=== PATIENT | female | born 1960 | race Caucasian/White ===

== ENCOUNTER 2016-10-05 22:17 | Emergency (ER) | payer MEDICAID ==
[~2016-10-05] VITALS: Ht 170.2 cm; Wt 104.6 kg
[~2016-10-05 22:17] MED LIST: ALBU90AE INH; ALPR0.2550 PO; AMLO5TAB2 PO; AZIT250T5 PO; AZIT250T81 PO; BENZ200C25 PO; CIPR500S2 PO; CPR500T PO; DOXY100C2 PO; ESCI20TA45 PO; FURO40TA4 PO; IBUP800T26 PO; LEVO125T6 PO; LVT.05T PO; LVT.1T PO; OMEP20CA12 PO; PHEN100T26 PO; POTA20TA15 PO; POTA20TA8 PO; TRAM50TA2 PO
--- NOTE | 2016-10-05 23:28 | ED Upper Extremity ---
General Chief Complaint: Upper Extremity Stated Complaint: RIGHT WRIST INJ Nursing Triage Note: PT REPORTS FELL WHILE TAKING HER DOG OUT TO USE THE RESTROOM. PT REPORTS R WRIST, ELBOW, AND SHOULDER PAIN. PT DENIES ANY OTHER INJURY. Nursing Sepsis Screen: No Definite Risk Source: patient Exam Limitations: no limitations History of Present Illness Time seen by provider: 23:28 Allergies and Home Medications Allergies Coded Allergies: Penicillins (Verified Allergy, Unknown, 09/04/06) morphine (Verified Allergy, Unknown, 09/04/06) Home Medications Albuterol Sulfate 90 Mcg Aer.pow.ba, 2 PUFF INH Q6H PRN for SHORTNESS OF BREATH, (Reported) Amlodipine Besylate 5 Mg Tablet, 5 MG PO DAILY, (Reported) #30 FILLED 11-19-15 Azithromycin 250 Mg Tablet, PO UD for 5 Days, (Reported) 5 DAY SUPPLY FILLED 12-29-15 Doxycycline Hyclate 100 Mg Capsule, 100 MG PO BID for 10 Days, (Reported) 10 DAY SUPPLY FILLED 12-29-15 Escitalopram Oxalate 20 Mg Tablet, 20 MG PO DAILY, (Reported) Furosemide 40 Mg Tablet, 40 MG PO DAILY, (Reported) #90 FILLED 09-10-15 Levothyroxine Sodium 125 Mcg Tablet, 125 MCG PO DAILY, (Reported) #90 FILLED 09-10-15 Potassium Chloride 20 Meq Tab.er.prt, 20 MEQ PO DAILY, (Reported) FILLED #30 09-10-15 Past Vyiltjy-Axycmu-Vnttzj Hx Patient Social History Alcohol Use: Denies Use Recreational Drug Use: Yes (PAST HX OF) Smoking Status: Current Everyday Smoker Type Used: Cigarettes Recent Foreign Travel: No Contact w/Someone Who Travel: No Recent Infectious Disease Expo: No Recent Hopitalizations: Yes (10 YRS AGO) Physical Abuse: No Sexual Abuse: No Mistreated: No Fear: No Immunizations Up To Date Tetanus Booster (TDap): Unknown Date of Pneumonia Vaccine: Feb 14, 2012 Date of Influenza Vaccine: Dec 14, 2012 Seasonal Allergies Seasonal Allergies: No Surgeries History of Surgeries: Yes (R ARM, LIGAMENT TRANSFER AND NASAL RECONSTR) Surgeries: Breast, Nose, Orthopedic, Tonsillectomy, Tubal Ligation Respiratory History of Respiratory Disorde: No Cardiovascular History of Cardiac Disorders: Yes Cardiac Disorders: Hypertension Neurological History of Neurological Disord: Yes Neurological Disorders: Headaches /Migraines Reproductive System Hx Reproductive Disorders: No Gastrointestinal History of Gastrointestinal Di: Yes Gastrointestinal Disorders: Gastroesophageal Reflux Musculoskeletal History of Musculoskeletal Dis: Yes (RIGHT ARM COMPOUND FX) Musculoskeletal Disorders: Fractures Endocrine History of Endocrine Disorders: Yes Endocrine Disorders: Hypothyroidsim Cancer History of Cancer: No Psychosocial History of Psychiatric Problem: Yes Behavioral Health Disorders: Anxiety, Depression Suicide Risk Score: 0 Integumentary History of Skin or Integumenta: No Blood Transfusions History of Blood Disorders: No Family Medical History Family Medial History: Alcoholism G8 BROTHER Cardiovascular disease 19 MOTHER Diabetes mellitus G8 SISTER FH: cancer 19 FATHER Hypertension G8 BROTHER Physical Exam Vital Signs Vital Sign - Last 12Hours 10/05/16 22:40 Temp 96.8 Pulse 100 Resp 18 B/P (MAP) 170/127 Pulse Ox 99 Capillary Refill : Less Than 3 Seconds Progress/Results/Core Measures Results/Orders My Orders Orders - ALEXA JOHNSON Forearm, Right, 2 Views (10/05/16 22:39) Humerus, Right, 2 Views (10/05/16 22:39) Hand, Right, 3 Views (10/05/16 22:39) Ketorolac Injection (Toradol Injection) (10/05/16 23:37) Vital Signs/I&O Vital Sign - Last 12Hours 10/05/16 22:40 Temp 96.8 Pulse 100 Resp 18 B/P (MAP) 170/127 Pulse Ox 99 Blood Pressure Mean: 141 Departure Impression Impression: Primary Impression: Sprain of upper extremity Disposition: 01 HOME, SELF-CARE Condition: Improved Departure-Patient Inst. Decision time for Depature: 23:39 Referrals: DORIS SOTO DO (PCP/Family) Primary Care Physician Patient Instructions: How to Use a Shoulder Sling, Wrist Sprain (DC), Muscle Strain (DC) Add. Discharge Instructions: All discharge instructions reviewed with patient and/or family. Voiced understanding. Tylenol extra strength [id number] as directed for pain. Ibuprofen 800 mg by mouth every 8 hours as needed for pain. Elevate the right arm on pillows. Ice pack for 20 minute intervals as needed for pain. Arm sling as instructed. Wrist brace as instructed. Follow-up with your primary care physician for recheck as an outpatient. Return to the emergency department for worsened symptoms or any other concerns. ALEXA JOHNSON Oct 05, 2016 23:28
[2016-10-05] MEDS ORDERED: KETOROLAC 60 MG/2 ML VIAL IM STA (23:37)
[2016-10-05 23:47] VITALS: BP 0/0
--- NOTE | 2016-10-06 07:05 | Diagnostic Imaging Report ---
INDICATION: Pain post fall TECHNIQUE: 2 views of the right humerus CORRELATION STUDY: None FINDINGS: The humerus has an unremarkable appearance. The visualized portions of the shoulder and elbow are unremarkable. Soft tissues are unremarkable. IMPRESSION: 1. Negative for acute bony abnormality of the humerus. Dictated by: Dictated on workstation # [id number]
--- NOTE | 2016-10-06 07:13 | Diagnostic Imaging Report ---
HAND, RIGHT, 3 VIEWS COMPARISON: None available. INDICATION: Right hand pain after fall. Patient has had multiple surgeries in the right wrist. TECHNIQUE: PA, oblique and lateral views of the hand. FINDINGS: No fracture or traumatic malalignment. No radiopaque foreign body. Moderate degenerative changes at the first CMC articulation. Partially imaged distal ulnar resection. IMPRESSION: 1. No acute fracture or malalignment. 2. Partial imaged surgical changes of distal ulnar resection. Dictated by: Dictated on workstation # [id number]
--- NOTE | 2016-10-06 07:20 | Diagnostic Imaging Report ---
INDICATION: Pain post fall. History of previous multiple surgeries, right wrist. TECHNIQUE: 2 views of the right forearm. CORRELATION STUDY: 10/04/2012. FINDINGS: There is a chronic deformity about the distal radius and ulna. 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 There is abnormal lateral bowing of the distal radius with narrowing of the radiocarpal row. No findings to suggest acute bony abnormality about the radius and/or ulna. Visualized portions of the elbow appearing relatively unremarkable. Soft tissues may reflect calcification. Foreign bodies would be considered less likely. IMPRESSION: Negative for acute bony abnormality of the forearm. Likely chronic traumatic or surgical changes about the distal forearm. Dictated by: Dictated on workstation # [id number]
== END 2016-10-05 23:47 | disposition home or self-care (01) ==
LOC: ER 22:17
DX: S63.501A Unspecified sprain of right wrist, initial encounter (principal); F41.9 Anxiety disorder, unspecified; F32.9 Major depressive disorder, single episode, unspecified; E03.9 Hypothyroidism, unspecified; K21.9 Gastro-esophageal reflux disease without esophagitis; G43.909 Migraine, unspecified, not intractable, without status migrainosus; F17.210 Nicotine dependence, cigarettes, uncomplicated; Z98.51 Tubal ligation status; Z87.81 Personal history of (healed) traumatic fracture; Z90.89 Acquired absence of other organs; W19.XXXA Unspecified fall, initial encounter
CPT/HCPCS: 73060; 73090; 73130; 96372; 99284

== ENCOUNTER 2018-06-10 09:45 | Emergency (ER) | payer MEDICAID ==
[~2018-06-10] VITALS: Ht 165.1 cm; Wt 108.9 kg
[~2018-06-10 09:45] MED LIST changes: +AMLO5TAB9 PO; +AZIT250T12 PO; -AZIT250T5 PO
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
[2018-06-10] MEDS ORDERED: RT-ALBUTEROL/IPRATROPIUM 3 ML (DUONEB) VIAL INH ONE (10:15)
--- NOTE | 2018-06-10 10:16 | ED Cough/URI ---
General Chief Complaint: Cough/Cold/Flu Symptoms Stated Complaint: PNEUMONIA SYMPTOMS Nursing Triage Note: PT AMB TO RM 9 WITH COMPLAINT OF COUGH, CONGESTION FOR 1 WEEK. STATES SHE HAS BEEN TAKING ROBUTUSSIN. Sepsis Screen: No Definite Risk Source: patient Exam Limitations: no limitations History of Present Illness Date Seen by Provider: Jun 10, 2018 Time Seen by Provider: 10:07 Initial Comments Patient presents to ER by private conveyance with chief complaint of 10 days of cough, sinus drainage, fever 102.9 last night. She does not have a history of COPD to take breathing treatments. She does smoke about half pack cigarettes per day. No nausea sweats, chills, constipation or diarrhea. Patient does not take her blood pressure medicine anymore because she has not followed up with Dr. Soto her greater than 6 months. She does not remember the name of the medicine was. Allergies and Home Medications Allergies Coded Allergies: Penicillins (Verified Allergy, Unknown, 09/04/06) morphine (Verified Allergy, Unknown, 09/04/06) Home Medications Albuterol Sulfate 90 Mcg Aer.pow.ba, 2 PUFF INH Q6H PRN for SHORTNESS OF BREATH, (Reported) Amlodipine Besylate 5 Mg Tablet, 5 MG PO DAILY, (Reported) #30 FILLED 11-19-15 Azithromycin 250 Mg Tablet, PO UD, (Reported) 5 DAY SUPPLY FILLED 12-29-15 Doxycycline Hyclate 100 Mg Capsule, 100 MG PO BID, (Reported) 10 DAY SUPPLY FILLED 12-29-15 Escitalopram Oxalate 20 Mg Tablet, 20 MG PO DAILY, (Reported) Furosemide 40 Mg Tablet, 40 MG PO DAILY, (Reported) #90 FILLED 09-10-15 Levothyroxine Sodium 125 Mcg Tablet, 125 MCG PO DAILY, (Reported) #90 FILLED 09-10-15 Potassium Chloride 20 Meq Tab.er.prt, 20 MEQ PO DAILY, (Reported) FILLED #30 09-10-15 Patient Home Medication List Home Medication List Reviewed: Yes Review of Systems Review of Systems Constitutional: chills, fever, malaise EENTM: No ear discharge, No hearing loss, No ear pain Respiratory: cough, phlegm, short of breath, wheezing Cardiovascular: No chest pain, No edema Gastrointestinal: No abdominal pain, No nausea, No vomiting Genitourinary: No discharge, No dysuria Past Sjwfxie-Ciyomb-Xqhbbl Hx Patient Social History Alcohol Use: Denies Use Recreational Drug Use: Yes (PAST HX OF) Type Used: Cigarettes Recent Foreign Travel: No Contact w/Someone Who Travel: No Recent Infectious Disease Expo: No Recent Hopitalizations: No Immunizations Up To Date Tetanus Booster (TDap): Unknown Date of Pneumonia Vaccine: Feb 14, 2012 Date of Influenza Vaccine: Dec 14, 2012 Seasonal Allergies Seasonal Allergies: No Past Medical History Surgeries: Yes (R ARM, LIGAMENT TRANSFER AND NASAL RECONSTR) Breast, Nose, Orthopedic, Tonsillectomy, Tubal Ligation Respiratory: No Cardiac: Yes Hypertension Neurological: Yes Headaches /Migraines Reproductive Disorders: No Gastrointestinal: Yes Gastroesophageal Reflux Musculoskeletal: Yes (RIGHT ARM COMPOUND FX) Fractures Endocrine: Yes Hypothyroidsim Cancer: No Psychosocial: Yes Anxiety, Depression Integumentary: No Blood Disorders: No Family Medical History Alcoholism G8 BROTHER Cardiovascular disease 19 MOTHER Diabetes mellitus G8 SISTER FH: cancer 19 FATHER Hypertension G8 BROTHER No Pertinent Family Hx Physical Exam Vital Signs - First Documented 06/10/18 10:02 Temp 98.2 Pulse 77 Resp 20 B/P (MAP) 199/110 (139) Pulse Ox 99 O2 Delivery Room Air Capillary Refill : Less Than 3 Seconds Height: 5'5.00" Weight: 240lbs. 8.0oz. 108.849026vv; 36.02 BMI Method:Stated General Appearance: WD/WN, no apparent distress Eyes: Bilateral Eye Normal Inspection, Bilateral Eye PERRL, Bilateral Eye EOMI HEENT: PERRL/EOMI, normal ENT inspection, TMs normal, pharynx normal Neck: non-tender, full range of motion, normal inspection Respiratory: chest non-tender, no respiratory distress, no accessory muscle use , decreased breath sounds, wheezing (a few) Cardiovascular: normal peripheral pulses, regular rate, rhythm, no edema Neurologic/Psychiatric: alert, oriented x 3 Skin: normal color, warm/dry Progress/Results/Core Measures Suspected Sepsis Recent Fever Within 48 Hours: No Infection Criteria Present: None New/Unexplained Altered Menta: No Sepsis Screen: No Definite Risk SIRS Temperature:98.2 Pulse: 77 Respiratory Rate: 20 Laboratory Tests 06/10/18 10:35: White Blood Count 10.4 Blood Pressure 199 /110 Mean: 139 Laboratory Tests 06/10/18 10:35: Creatinine 0.77, Platelet Count 343, Total Bilirubin 0.6 Results/Orders Lab Results Laboratory Tests Test 06/10/18 10:35 Range/Units White Blood Count 10.4 4.3-11.0 10^3/uL Red Blood Count 5.38 4.35-5.85 10^6/uL Hemoglobin 11.5 11.5-16.0 G/DL Hematocrit 38 35-52 % Mean Corpuscular Volume 71 L 80-99 FL Mean Corpuscular Hemoglobin 21 L 25-34 PG Mean Corpuscular Hemoglobin Concent 30 L 32-36 G/DL Red Cell Distribution Width 21.6 H 10.0-14.5 % Platelet Count 343 130-400 10^3/uL Mean Platelet Volume 10.9 H 7.4-10.4 FL Neutrophils (%) (Auto) 68 42-75 % Lymphocytes (%) (Auto) 21 12-44 % Monocytes (%) (Auto) 7 0-12 % Eosinophils (%) (Auto) 2 0-10 % Basophils (%) (Auto) 1 0-10 % Neutrophils # (Auto) 7.1 1.8-7.8 X 10^3 Lymphocytes # (Auto) 2.2 1.0-4.0 X 10^3 Monocytes # (Auto) 0.8 0.0-1.0 X 10^3 Eosinophils # (Auto) 0.3 0.0-0.3 10^3/uL Basophils # (Auto) 0.1 0.0-0.1 10^3/uL Sodium Level 140 135-145 MMOL/L Potassium Level 4.1 3.6-5.0 MMOL/L Chloride Level 106 98-107 MMOL/L Carbon Dioxide Level 20 L 21-32 MMOL/L Anion Gap 14 5-14 MMOL/L Blood Urea Nitrogen 10 7-18 MG/DL Creatinine 0.77 0.60-1.30 MG/DL Estimat Glomerular Filtration Rate > 60 BUN/Creatinine Ratio 13 Glucose Level 104 70-105 MG/DL Calcium Level 9.4 8.5-10.1 MG/DL Corrected Calcium 9.4 8.5-10.1 MG/DL Total Bilirubin 0.6 0.1-1.0 MG/DL Aspartate Amino Transf (AST/SGOT) 56 H 5-34 U/L Alanine Aminotransferase (ALT/SGPT) 47 0-55 U/L Alkaline Phosphatase 110 40-136 U/L C-Reactive Protein High Sensitivity 0.67 H 0.00-0.50 MG/DL Total Protein 8.8 H 6.4-8.2 GM/DL Albumin 4.0 3.2-4.5 GM/DL My Orders Orders - NAYA NICKERSON Cbc With Automated Diff (06/10/18 10:15) Comprehensive Metabolic Panel (06/10/18 10:15) Hs C Reactive Protein (06/10/18 10:15) Chest Pa/Lat (2 View) (06/10/18 10:15) Albuterol/Ipra Inhalation Soln (Duoneb I (06/10/18 10:15) Svn Small Volume Nebulizer (06/10/18 10:15) Medications Given in ED Current Medications Medications Dose Ordered Sig/Brigid Route Start Time Stop Time Status Last Admin Dose Admin Albuterol/ Ipratropium 3 ml ONCE ONCE INH 06/10/18 10:15 06/10/18 10:16 DC 06/10/18 10:50 3 ML Vital Signs/I&O 06/10/18 06/10/18 10:02 10:50 Temp 98.2 Pulse 77 Resp 20 B/P (MAP) 199/110 (139) Pulse Ox 99 95 O2 Delivery Room Air Room Air Capillary Refill : Less Than 3 Seconds Blood Pressure Mean: 139 Progress Note : Time: 11:21 Progress Note Breathing treatment, chest x-ray and lab. Bronchitis versus pneumonia versus COPD exacerbation. Diagnostic Imaging Diagonstic Imaging: Xray Plain Films/CT/US/NM/MRI: chest (2 view) Comments [facility], [place] NAME: AMAIRANI ROY [facility] REC#: [id number] PT STATUS: REG ER : 1960 PHYSICIAN: NAYA NICKERSON MD ADMIT DATE: 06/10/18/ER Draft Date of Exam:06/10/18 CHEST PA/LAT (2 VIEW) INDICATION: Chest pain, congestion COMPARISON: 11/10/2014 FINDINGS: There is flattening of the diaphragms and chronic air trapping. No focal infiltrate, failure pattern, effusion or pneumothorax. IMPRESSION: Clear hyperexpanded lungs, otherwise negative. Dictated on workstation # [id number] Dict: 06/10/18 1051 Trans: 06/10/[address] [facility] [id number] Interpreted by: NAYA STARKS Electronically signed by: Reviewed: Reviewed by Me Departure Impression Primary Impression: COPD with acute bronchitis Additional Impression: Hypertension Disposition: 01 HOME, SELF-CARE Condition: Stable Departure-Patient Inst. Decision time for Depature: 11:22 Referrals: DORIS SOTO DO (PCP/Family) Primary Care Physician Patient Instructions: Acute Bronchitis, Adult (DC), Exacerbation of COPD (DC) Add. 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 Use it with your albuterol inhaler every 6 hours [id number] for the next week. You can use the albuterol 2 puffs every 4 hours as needed for breakthrough wheezing or coughing. Use the Tessalon Perles 1 capsule every 6 hours as needed for cough. 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 If you're not seeing some improvement by middle of next week follow-up with your primary care doctor for reexamination. Please return to the nearest ER for having difficulty breathing. All discharge instructions reviewed with patient and/or family. Voiced understanding. Scripts Inhaler, Assist Devices (E-Z Spacer) 1 Each Spacer EACH MC for Cough, #1 0 Refills Prov: NAYA NICKERSON 06/10/18 Prednisone (Prednisone) 20 Mg Tab 40 MG PO DAILY for 5 Days, #10 TAB 0 Refills Prov: NAYA NICKERSON 06/10/18 Benzonatate (TESSALON PERLES) 100 Mg Capsule 100 MG PO Q6H PRN for COUGH, #20 CAP 0 Refills Prov: NAYA NICKERSON 06/10/18 Albuterol Sulfate (PROAIR HFA) 1 Puff Puff 2 PUFF IH Q6H for 14 Days, #1 EA 0 Refills 1 PUFF = 90 MCG Prov: NAYA NICKERSON 06/10/18 NAYA NICKERSON Jun 10, 2018 10:16
[2018-06-10 10:44] LABS: BASOPHILS # (AUTO) 0.1 10^3/uL (0.0-0.1); BASOPHILS % (AUTO) 1 % (0-10); EOSINOPHILS # (AUTO) 0.3 10^3/uL (0.0-0.3); EOSINOPHILS % (AUTO) 2 % (0-10); HEMATOCRIT 38 % (35-52); HEMOGLOBIN 11.5 G/DL (11.5-16.0); LYMPHOCYTES # (AUTO) 2.2 X 10^3 (1.0-4.0); LYMPHOCYTES % (AUTO) 21 % (12-44); MEAN CORPUSCULAR HEMOGLOBIN 21 PG (25-34); MEAN CORPUSCULAR HGB CONC 30 G/DL (32-36); MEAN CORPUSCULAR VOLUME 71 FL (80-99); MEAN PLATELET VOLUME 10.9 FL (7.4-10.4); MONOCYTES # (AUTO) 0.8 X 10^3 (0.0-1.0); MONOCYTES % (AUTO) 7 % (0-12); NEUTROPHILS # (AUTO) 7.1 X 10^3 (1.8-7.8); NEUTROPHILS % (AUTO) 68 % (42-75); PLATELET COUNT 343 10^3/uL (130-400); RED CELL DISTRIBUTION WIDTH 21.6 % (10.0-14.5); WHITE BLOOD COUNT 10.4 10^3/uL (4.3-11.0)
--- NOTE | 2018-06-10 10:55 | Diagnostic Imaging Report ---
INDICATION: Chest pain, congestion COMPARISON: 11/10/2014 FINDINGS: There is flattening of the diaphragms and chronic air trapping. No focal infiltrate, failure pattern, effusion or pneumothorax. IMPRESSION: Clear hyperexpanded lungs, otherwise negative. Dictated by: Dictated on workstation # [id number]
[2018-06-10 11:00] LABS: ALANINE AMINOTRANSFERASE 47 U/L (0-55); ALKALINE PHOSPHATASE 110 U/L (40-136); BILIRUBIN,TOTAL 0.6 MG/DL (0.1-1.0); BUN/CREATININE RATIO 13; CALCIUM 9.4 MG/DL (8.5-10.1); CARBON DIOXIDE 20 MMOL/L (21-32); CHLORIDE 106 MMOL/L (98-107); CREATININE SERUM 0.77 MG/DL (0.60-1.30); GFR ESTIMATED > 60; GLUCOSE 104 MG/DL (70-105); POTASSIUM 4.1 MMOL/L (3.6-5.0); SODIUM 140 MMOL/L (135-145); TOTAL PROTEIN 8.8 GM/DL (6.4-8.2)
[2018-06-10] MEDS ORDERED: PRD20T PO (11:27)
[2018-06-10] MEDS ORDERED: BENZ100C18 PO (11:27)
[2018-06-10] MEDS ORDERED: RT-ALBUINH IH (11:27)
[2018-06-10] MEDS ORDERED: INHA1INH59 MC (11:27)
[2018-06-10 11:34] VITALS: BP 150/96
== END 2018-06-10 11:34 | disposition home or self-care (01) ==
LOC: EDUNIT# 09:45 → ER 09:46
DX: J44.0 Chronic obstructive pulmonary disease with (acute) lower respiratory infection (principal); J20.9 Acute bronchitis, unspecified; I10 Essential (primary) hypertension; G43.909 Migraine, unspecified, not intractable, without status migrainosus; K21.9 Gastro-esophageal reflux disease without esophagitis; E03.9 Hypothyroidism, unspecified; F41.9 Anxiety disorder, unspecified; F32.9 Major depressive disorder, single episode, unspecified; F17.210 Nicotine dependence, cigarettes, uncomplicated; Z98.890 Other specified postprocedural states; Z90.89 Acquired absence of other organs; Z82.49 Family history of ischemic heart disease and other diseases of the circulatory system; Z98.51 Tubal ligation status; Z88.0 Allergy status to penicillin; Z88.5 Allergy status to narcotic agent
CPT/HCPCS: 36415; 71046; 80053; 85025; 86141; 94640

== ENCOUNTER → 2019-03-25 | Outpatient (CLI) | payer MEDICAID, MEDICARE ==
[~2019-03-25] MED LIST changes: +BENZ100C18 PO; +INHA1INH59 MC; +PRD20T PO; +RT-ALBUINH IH
--- NOTE | 2019-03-25 13:10 | Diagnostic Imaging Report ---
INDICATION: Pneumonia. COMPARISON: 06/10/2018. FINDINGS: The heart size is normal. There is no pleural effusion or pneumothorax. The mediastinum is unremarkable. IMPRESSION: No acute cardiopulmonary abnormality. Dictated by: Dictated on workstation # [id number]
== END ==
LOC: RAD 12:14
PROVIDERS: ATTEND Family Medicine
DX: I10 Essential (primary) hypertension (principal); R06.02 Shortness of breath; F17.200 Nicotine dependence, unspecified, uncomplicated
CPT/HCPCS: 71046

== ENCOUNTER → 2019-03-26 | Outpatient (CLI) | payer MEDICARE, MEDICAID ==
[2019-03-26 10:04] LABS: HEMOGLOBIN 11.6 G/DL (11.5-16.0); MEAN PLATELET VOLUME 11.6 FL (7.4-10.4); RED CELL DISTRIBUTION WIDTH 20.8 % (10.0-14.5); WHITE BLOOD COUNT 10.2 10^3/uL (4.3-11.0)
[2019-03-26 10:30] LABS: ALANINE AMINOTRANSFERASE 60 U/L (0-55); ALBUMIN 3.7 GM/DL (3.2-4.5); ALKALINE PHOSPHATASE 97 U/L (40-136); BILIRUBIN,TOTAL 0.4 MG/DL (0.1-1.0); BUN/CREATININE RATIO 13; CALCIUM 8.6 MG/DL (8.5-10.1); CARBON DIOXIDE 22 MMOL/L (21-32); CHLORIDE 110 MMOL/L (98-107); CHOLESTEROL 148 MG/DL (< 200); CREATININE SERUM 0.71 MG/DL (0.60-1.30); GFR ESTIMATED > 60; GLUCOSE 142 MG/DL (70-105); HDL CHOLESTEROL 37 MG/DL (40-60); SODIUM 140 MMOL/L (135-145); TOTAL PROTEIN 8.1 GM/DL (6.4-8.2); TRIGLYCERIDES 94 MG/DL (<150); VLDL CHOLESTEROL 19 MG/DL (5-40)
== END ==
LOC: LAB 09:52
PROVIDERS: ATTEND Family Medicine
DX: I10 Essential (primary) hypertension (principal); E11.9 Type 2 diabetes mellitus without complications; E03.9 Hypothyroidism, unspecified; R06.02 Shortness of breath; Z79.899 Other long term (current) drug therapy
CPT/HCPCS: 36415; 80053; 80061; 83036; 83880; 84443; 85027

== ENCOUNTER → 2021-04-08 | Outpatient (CLI) | payer MEDICARE, MEDICAID ==
[~2021-04-08] MED LIST changes: +AMLO-250 PO; -AMLO5TAB9 PO; -DOXY100C2 PO; +DOXY100C5 PO; +ESCI20TA39 PO; -ESCI20TA45 PO; +POTA-169 PO; -POTA20TA8 PO
--- NOTE | 2021-04-08 12:10 | Diagnostic Imaging Report ---
EXAMINATION: US Lower Extremity Venous Duplex Left. TECHNIQUE: Multiple real-time grayscale images were obtained over the left lower extremity in various projections. Additional spectral analysis and color Doppler duplex images were also obtained. HISTORY: Left lower extremity pain and swelling. COMPARISON: 01/01/2016. FINDINGS: The left common femoral vein, deep femoral vein, superficial femoral vein and popliteal vein are patent with normal arshad scale and doppler appearance. There is normal respiratory variation and augmentation. IMPRESSION: 1. No DVT of the left lower extremity. Dictated by: Dictated on workstation # [id number]
== END ==
LOC: RAD 11:30
PROVIDERS: ATTEND Family Medicine
DX: M79.89 Other specified soft tissue disorders (principal)

== ENCOUNTER 2021-12-30 14:37 | Emergency (ER) | payer MEDICARE, MEDICAID ==
[~2021-12-30] VITALS: Ht 169 cm; Wt 102.0 kg
[~2021-12-30 14:37] MED LIST changes: +ALBU8.5H6 IH; -RT-ALBUINH IH
[2021-12-30 15:23] LABS: BILIRUBIN,URINE NEGATIVE (NEGATIVE); CLARITY,URINE CLEAR; COLOR,URINE YELLOW; GLUCOSE, URINE (UA) 3+ (NEGATIVE); KETONES,URINE NEGATIVE (NEGATIVE); LEUKOCYTE ESTERASE ,URINE NEGATIVE (NEGATIVE); NITRITE,URINE NEGATIVE (NEGATIVE); PH,URINE 5.5 (5-9); PROTEIN,URINE NEGATIVE (NEGATIVE)
[2021-12-30 15:36] LABS: BACTERIA,URINE TRACE /HPF; RBC,URINE RARE /HPF; WBC,URINE 0-2 /HPF
[2021-12-30 16:30] LABS: ALBUMIN 3.4 GM/DL (3.2-4.5)
[2021-12-30 16:31] LABS: POTASSIUM 4.2 MMOL/L (3.6-5.0)
[2021-12-30 16:33] LABS: BASOPHILS # (AUTO) 0.1 10^3/uL (0.0-0.1); BASOPHILS % (AUTO) 1 % (0-10); EOSINOPHILS # (AUTO) 0.1 10^3/uL (0.0-0.3); EOSINOPHILS % (AUTO) 2 % (0-10); HEMATOCRIT 38 % (35-52); HEMOGLOBIN 11.6 g/dL (11.5-16.0); LYMPHOCYTES # (AUTO) 2.2 10^3/uL (1.0-4.0); LYMPHOCYTES % (AUTO) 32 % (12-44); MEAN CORPUSCULAR HEMOGLOBIN 22 pg (25-34); MEAN CORPUSCULAR HGB CONC 30 g/dL (32-36); MEAN CORPUSCULAR VOLUME 71 fL (80-99); MONOCYTES # (AUTO) 0.4 10^3/uL (0.0-1.0); MONOCYTES % (AUTO) 6 % (0-12); NEUTROPHILS # (AUTO) 4.1 10^3/uL (1.8-7.8); NEUTROPHILS % (AUTO) 59 % (42-75); TOTAL PROTEIN 8.2 GM/DL (6.4-8.2)
[2021-12-30 16:35] LABS: BILIRUBIN,TOTAL 0.5 MG/DL (0.1-1.0)
[2021-12-30 16:36] LABS: PLATELET COUNT 52 10^3/uL (130-400)
[2021-12-30 16:37] LABS: CREATININE SERUM 0.82 MG/DL (0.60-1.30)
[2021-12-30] MEDS ORDERED: SULF1TAB38 PO (16:47)
--- NOTE | 2021-12-30 16:47 | ED General ---
General Chief Complaint: General Problems/Pain Stated Complaint: CELLULITIS IN LT LEG | BLADDER ISSUE Nursing Triage Note: pt states cellulitis in lt leg and urinary issues for about 10 days, states pain rt side off and on but no pain at this time Source of Information: Patient Exam Limitations: No Limitations History of Present Illness Date Seen by Provider: Dec 30, 2021 Time Seen by Provider: 16:50 Initial Comments Patient is a 61-year-old female who presents to the emergency department for evaluation of approximately 1 week of urinary frequency as well as approximately 2 weeks of left lower leg redness. Patient has a history of bilateral lower extremity lymphedema. She states the area is mildly painful. Denies any pain with urination but states she feels like she has to urinate frequently. Denies any recent injury to her left lower leg. No recent antibiotic usage. Allergies and Home Medications Allergies Coded Allergies: Penicillins (Verified Allergy, Unknown, 09/04/06) morphine (Verified Allergy, Unknown, 09/04/06) Patient Home Medication List Home Medication List Reviewed: Yes Albuterol Sulfate (Proair Respiclick) 90 Mcg Aer.pow.ba, 2 PUFF INH Q6H PRN for SHORTNESS OF BREATH, (Reported) Entered as Reported by: ALEJANDRA HINOJOSA on 01/01/16856 Albuterol Sulfate (Ventolin Hfa) 1 Puff Puff, 2 PUFF IH Q6H Prescribed by: NAYA NICKERSON on 06/10/181126 Amlodipine Besylate (Amlodipine Besylate) 5 Mg Tablet, 5 MG PO DAILY, (Reported) Entered as Reported by: ALEJANDRA HINOJOSA on 01/01/16856 Azithromycin (Azithromycin) 250 Mg Tablet, PO UD, (Reported) Entered as Reported by: ALEJANDRA HINOJOSA on 01/01/16856 Benzonatate (Tessalon Perles) 100 Mg Capsule, 100 MG PO Q6H PRN for COUGH Prescribed by: NAYA NICKERSON on 06/10/181126 Doxycycline Hyclate (Doxycycline Hyclate) 100 Mg Capsule, 100 MG PO BID, (Reported) Entered as Reported by: ALEJANDRA HINOJOSA on 01/01/16 08 Escitalopram Oxalate (Escitalopram Oxalate) 20 Mg Tablet, 20 MG PO DAILY, (Reported) Entered as Reported by: ALEJANDRA HINOJOSA on 11/18/16 0857 Furosemide (Furosemide) 40 Mg Tablet, 40 MG PO DAILY, (Reported) Entered as Reported by: ALEJANDRA HINOJOSA on 01/01/16 0857 Inhaler, Assist Devices (E-Z Spacer) 1 Each Spacer, EACH MC, (DME) Prescribed by: NAYA NICKERSON on 06/10/18 1127 Levothyroxine Sodium (Levothyroxine Sodium) 125 Mcg Tablet, 125 MCG PO DAILY, (Reported) Entered as Reported by: ALEJANDRA HINOJOSA on 01/01/16 0857 Potassium Chloride (Klor-Con M20) 20 Meq Tab.er.prt, 20 MEQ PO DAILY, (Reported) Entered as Reported by: ALEJANDRA HINOJOSA on 01/01/16 0857 Prednisone (Prednisone) 20 Mg Tab, 40 MG PO DAILY Prescribed by: NAYA NICKERSON on 06/10/18 1127 Sulfamethoxazole/Trimethoprim (Bactrim Ds Tablet) 1 Each Tablet, 1 EACH PO BID Prescribed by: Korey Melgoza on 12/30/21 1647 Review of Systems Review of Systems Constitutional: no symptoms reported EENTM: no symptoms reported Respiratory: no symptoms reported Cardiovascular: no symptoms reported Gastrointestinal: no symptoms reported Genitourinary: see HPI Skin: see HPI Past Gnnxdlu-Dnxhxk-Qdceid Hx Patient Social History Tobacco Use?: Yes Tobacco type used: Cigarettes Substance use?: No Alcohol Use?: No Immunizations Up To Date Tetanus Booster (TDap): Unknown Second COVID19 Vaccination Fady: yes 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 Seasonal Allergies Seasonal Allergies: No Past Medical History Surgery/Hospitalization HX: COPD, DIABETIC TYPE II, BLADDER SURGERY, 11 SURGERIES ON RT ARM FROM TRAUMA Surgeries: Yes (R ARM, LIGAMENT TRANSFER AND NASAL RECONSTR) Breast, Nose, Orthopedic, Tonsillectomy, Tubal Ligation Respiratory: No Cardiac: Yes Hypertension Neurological: Yes Headaches /Migraines Reproductive Disorders: No Gastrointestinal: Yes Gastroesophageal Reflux Musculoskeletal: Yes (RIGHT ARM COMPOUND FX) Fractures Endocrine: Yes Hypothyroidsim Cancer: No Psychosocial: Yes Anxiety, Depression Integumentary: No Blood Disorders: No Family Medical History Alcoholism G8 BROTHER Cardiovascular disease 19 MOTHER Diabetes mellitus G8 SISTER FH: cancer 19 FATHER Hypertension G8 BROTHER No Pertinent Family Hx Physical Exam Vital Signs Vital Signs - First Documented 12/30/21 12/30/21 15:00 16:52 Temp 36.7 Pulse 101 Resp 20 B/P (MAP) 170/97 (121) Pulse Ox 99 O2 Delivery Room Air Capillary Refill : Height, Weight, BMI Height: 5'5.00" Weight: 240lbs. 8.0oz. 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 Norm as Tested Skin: Warm/Dry Comments Patient has erythema and swelling noted to the left lower extremity; swelling to a lesser extent noted to the right lower extremity; no provocation of pain with palpation of the area; no abdominal tenderness to palpation appreciated Progress/Results/Core Measures Suspected Sepsis SIRS Temperature: Pulse: 101 Respiratory Rate: 20 Laboratory Tests 12/30/21 16:11: White Blood Count 7.0 Blood Pressure 170 /97 Mean: 121 Laboratory Tests 12/30/21 16:11: Creatinine 0.82, Platelet Count 52L, Total Bilirubin 0.5 Results/Orders Lab Results Laboratory Tests Test 12/30/21 15:18 12/30/21 16:11 Range/Units Urine Color YELLOW Urine Clarity CLEAR Urine pH 5.5 5-9 Urine Specific [place] 1.025 H 1.016-1.022 Urine Protein NEGATIVE NEGATIVE Urine Glucose (UA) 3+ H NEGATIVE Urine Ketones NEGATIVE NEGATIVE Urine Nitrite NEGATIVE NEGATIVE Urine Bilirubin NEGATIVE NEGATIVE Urine Urobilinogen 1.0 < = 1.0 MG/DL Urine Leukocyte Esterase NEGATIVE NEGATIVE Urine RBC (Auto) NEGATIVE NEGATIVE Urine RBC RARE /HPF Urine WBC 0-2 /HPF Urine Squamous Epithelial Cells 5-10 /HPF Urine Crystals NONE /LPF Urine Bacteria TRACE /HPF Urine Casts NONE /LPF Urine Mucus NEGATIVE /LPF Urine Culture Indicated NO White Blood Count 7.0 4.3-11.0 10^3/uL Red Blood Count 5.40 H 3.80-5.11 10^6/uL Hemoglobin 11.6 11.5-16.0 g/dL Hematocrit 38 35-52 % Mean Corpuscular Volume 71 L 80-99 fL Mean Corpuscular Hemoglobin 22 L 25-34 pg Mean Corpuscular Hemoglobin Concent 30 L 32-36 g/dL Red Cell Distribution Width 17.0 H 10.0-14.5 % Platelet Count 52 L 130-400 10^3/uL Mean Platelet Volume 9.0-12.2 fL Immature Granulocyte % (Auto) 1 % Neutrophils (%) (Auto) 59 42-75 % Lymphocytes (%) (Auto) 32 12-44 % Monocytes (%) (Auto) 6 0-12 % Eosinophils (%) (Auto) 2 0-10 % Basophils (%) (Auto) 1 0-10 % Neutrophils # (Auto) 4.1 1.8-7.8 10^3/uL Lymphocytes # (Auto) 2.2 1.0-4.0 10^3/uL Monocytes # (Auto) 0.4 0.0-1.0 10^3/uL Eosinophils # (Auto) 0.1 0.0-0.3 10^3/uL Basophils # (Auto) 0.1 0.0-0.1 10^3/uL Immature Granulocyte # (Auto) 0.1 0.0-0.1 10^3/uL Sodium Level 135 135-145 MMOL/L Potassium Level 4.2 3.6-5.0 MMOL/L Chloride Level 99 98-107 MMOL/L Carbon Dioxide Level 24 21-32 MMOL/L Anion Gap 12 5-14 MMOL/L Blood Urea Nitrogen 8 7-18 MG/DL Creatinine 0.82 0.60-1.30 MG/DL Estimat Glomerular Filtration Rate 82 BUN/Creatinine Ratio 10 Glucose Level 368 H 70-105 MG/DL Calcium Level 9.0 8.5-10.1 MG/DL Corrected Calcium 9.5 8.5-10.1 MG/DL Total Bilirubin 0.5 0.1-1.0 MG/DL Aspartate Amino Transf (AST/SGOT) 67 H 5-34 U/L Alanine Aminotransferase (ALT/SGPT) 58 H 0-55 U/L Alkaline Phosphatase 104 40-136 U/L Total Protein 8.2 6.4-8.2 GM/DL Albumin 3.4 3.2-4.5 GM/DL My Orders Orders - KOREY MELGOZA GEOSPATIAL DEVELOPER Cbc With Automated Diff (12/30/21 15:13) Comprehensive Metabolic Panel (12/30/21 15:13) Ua Culture If Indicated (12/30/21 15:13) Vital Signs/I&O 12/30/21 12/30/21 15:00 16:52 Temp 36.7 Pulse 101 68 Resp 20 18 B/P (MAP) 170/97 (121) 154/79 Pulse Ox 99 O2 Delivery Room Air Room Air Capillary Refill : Blood Pressure Mean: 121 Progress Note : Progress Note Patient is nontoxic and well-hydrated on exam. Abdominal exam is benign. Vital signs are reassuring. There are some cellulitic changes to the left lower leg. Laboratory evaluation is largely unremarkable other than hyperglycemia. Urinalysis unremarkable other than glucosuria. Will treat with Bactrim. Discussed importance of close follow-up with PCP. Return precautions for urgent symptomology discussed. Patient verbalized understanding. Departure Impression Primary Impression: Cellulitis of left lower leg Additional Impression: Urinary frequency Disposition: 01 HOME, SELF-CARE Condition: Stable Departure-Patient Inst. Decision time for Depature: 16:45 Referrals: DORIS SOTO DO (PCP/Family) Primary Care Physician Patient Instructions: Cellulitis (Skin Infection), Adult ED Scripts Sulfamethoxazole/Trimethoprim (Bactrim Ds Tablet) 1 Each Tablet 1 EACH PO BID for 7 Days, #14 TAB 0 Refills Prov: KOREY MELGOZA APRN 12/30/21 KOREY MELGOZA APRN Dec 30, 2021 16:47
[2021-12-30 16:52] VITALS: BP 154/79
== END 2021-12-30 16:53 | disposition home or self-care (01) ==
LOC: EDUNIT# 14:37 → ER 14:39
DX: R35.0 Frequency of micturition (principal); L03.116 Cellulitis of left lower limb; E11.69 Type 2 diabetes mellitus with other specified complication; F17.210 Nicotine dependence, cigarettes, uncomplicated; Z88.1 Allergy status to other antibiotic agents
CPT/HCPCS: 36415; 80053; 81000; 85025; 99282

== ENCOUNTER 2022-01-21 10:20 | Emergency (ER) | payer MEDICARE, MEDICAID ==
[~2022-01-21] VITALS: Ht 165.1 cm; Wt 90.7 kg
[~2022-01-21 10:20] MED LIST changes: +SULF1TAB38 PO
[2022-01-21 10:26] VITALS: BP 137/80
--- NOTE | 2022-01-21 10:43 | ED General ---
General Chief Complaint: Glucose Problems Stated Complaint: HIGH BLOOD SUGAR Nursing Triage Note: PT AMB TO RM 7 WITH COMPLAINT OF FREQUENT URINATION AND EARACHE. PT WAS SENT OVER FROM DR DESAI FOR HIGH BLOOD SUGAR AND 4+ KETONES IN URINE. Source of Information: Patient Exam Limitations: No Limitations History of Present Illness Date Seen by Provider: Jan 21, 2022 Time Seen by Provider: 10:33 Initial Comments 61-year-old female presents emergency department today for elevated blood sugars. She was sent from her primary doctor's office of the glucometer did not read high enough to check her blood sugar and she was sent here to "see what my blood sugar is." She is apparently under the impression that she will get another fingerstick glucometer retired. I advised her that we will have to do a blood draw and I would like to start an IV to give IV fluids and have it in place in case we needed to give her other medications. She states "I do not want to do any of that." She declines any blood draws and states "they almost ruined me last time I was here." I advised her this was the only way to get a number for her blood sugar and check to see if she was in DKA. She again declines any further treatment and leaves the emergency department before I could examine her. Notably she quit taking her metformin a couple of months ago Allergies and Home Medications Allergies Coded Allergies: Penicillins (Verified Allergy, Unknown, 09/04/06) morphine (Verified Allergy, Unknown, 09/04/06) Patient Home Medication List Home Medication List Reviewed: Yes Albuterol Sulfate (Proair Respiclick) 90 Mcg Aer.pow.ba, 2 PUFF INH Q6H PRN for SHORTNESS OF BREATH, (Reported) Entered as Reported by: ALEJANDRA HINOJOSA on 01/01/16856 Albuterol Sulfate (Ventolin Hfa) 1 Puff Puff, 2 PUFF IH Q6H Prescribed by: NAYA NICKERSON on 06/10/18 1127 Amlodipine Besylate (Amlodipine Besylate) 5 Mg Tablet, 5 MG PO DAILY, (Reported) Entered as Reported by: ALEJANDRA HINOJOSA on 01/01/16 08 Azithromycin (Azithromycin) 250 Mg Tablet, PO UD, (Reported) Entered as Reported by: ALEJANDRA HINOJOSA on 01/01/16856 Benzonatate (Tessalon Perles) 100 Mg Capsule, 100 MG PO Q6H PRN for COUGH Prescribed by: NAYA NICKERSON on 06/10/18 112 Doxycycline Hyclate (Doxycycline Hyclate) 100 Mg Capsule, 100 MG PO BID, (Reported) Entered as Reported by: ALEJANDRA HINOJOSA on 01/01/16 0857 Escitalopram Oxalate (Escitalopram Oxalate) 20 Mg Tablet, 20 MG PO DAILY, (Reported) Entered as Reported by: ALEJANDRA HINOJOSA on 01/01/16 0857 Furosemide (Furosemide) 40 Mg Tablet, 40 MG PO DAILY, (Reported) Entered as Reported by: ALEJANDRA HINOJOSA on 01/01/16 0857 Inhaler, Assist Devices (E-Z Spacer) 1 Each Spacer, EACH MC, (DME) Prescribed by: NAYA NICKERSON on 06/10/18 112 Levothyroxine Sodium (Levothyroxine Sodium) 125 Mcg Tablet, 125 MCG PO DAILY, ( Reported) Entered as Reported by: ALEJANDRA HINOJOSA on 01/01/16 08 Potassium Chloride (Klor-Con M20) 20 Meq Tab.er.prt, 20 MEQ PO DAILY, (Reported) Entered as Reported by: ALEJANDRA HINOJOSA on 01/01/16 08 Prednisone (Prednisone) 20 Mg Tab, 40 MG PO DAILY Prescribed by: NAYA NICKERSON on 06/10/181126 Sulfamethoxazole/Trimethoprim (Bactrim Ds Tablet) 1 Each Tablet, 1 EACH PO BID Prescribed by: Korey Melgoza on 12/30/21 1647 Review of Systems Review of Systems Constitutional: no symptoms reported EENTM: no symptoms reported Respiratory: no symptoms reported Cardiovascular: no symptoms reported Gastrointestinal: no symptoms reported Genitourinary: frequency Musculoskeletal: no symptoms reported Skin: no symptoms reported Psychiatric/Neurological: No Symptoms Reported Hematologic/Lymphatic: No Symptoms Reported Immunological/Allergic: no symptoms reported Past Rluywoo-Aecvvx-Whdlsc Hx Patient Social History Tobacco Use?: Yes Tobacco type used: Cigarettes Smoking Status: Current Everyday Smoker Use of E-Cig and/or Vaping dev: No Substance use?: No Alcohol Use?: No Pt feels they are or have been: No Immunizations Up To Date Tetanus Booster (TDap): Unknown First/Initial COVID19 Vaccinat: yes Second COVID19 Vaccination Fady: yes Third COVID19 Vaccination Date: yes Seasonal Allergies Seasonal Allergies: No Past Medical History Surgery/Hospitalization HX: COPD, DIABETIC TYPE II, BLADDER SURGERY, 11 SURGERIES ON RT ARM FROM TRAUMA Surgeries: Yes (R ARM, LIGAMENT TRANSFER AND NASAL RECONSTR) Breast, Nose, Orthopedic, Tonsillectomy, Tubal Ligation Respiratory: No Cardiac: Yes Hypertension Neurological: Yes Headaches /Migraines Reproductive Disorders: No Gastrointestinal: Yes Gastroesophageal Reflux Musculoskeletal: Yes (RIGHT ARM COMPOUND FX) Fractures Endocrine: Yes Hypothyroidsim Cancer: No Psychosocial: Yes Anxiety, Depression Integumentary: No Blood Disorders: No Family Medical History Reviewed Nursing Family Hx Alcoholism G8 BROTHER Cardiovascular disease 19 MOTHER Diabetes mellitus G8 SISTER FH: cancer 19 FATHER Hypertension G8 BROTHER No Pertinent Family Hx Physical Exam Vital Signs Vital Signs - First Documented 01/21/22 10:26 Temp 36.8 Pulse 111 Resp 20 B/P (MAP) 137/80 (99) Pulse Ox 96 O2 Delivery Room Air Capillary Refill : Less Than 3 Seconds Height, Weight, BMI Height: 5'5.00" Weight: 240lbs. 8.0oz. 108.569002ix; 33.00 BMI Method:Stated General Appearance: No Apparent Distress, WD/WN Comments The patient left before I could examine her Progress/Results/Core Measures Suspected Sepsis SIRS Temperature: Pulse: 111 Respiratory Rate: 20 Blood Pressure 137 /80 Mean: 99 Results/Orders Lab Results Laboratory Tests Test 01/21/22 10:30 Range/Units Glucometer 490 *H 70-110 MG/DL Vital Signs/I&O 01/21/22 10:26 Temp 36.8 Pulse 111 Resp 20 B/P (MAP) 137/80 (99) Pulse Ox 96 O2 Delivery Room Air Capillary Refill : Less Than 3 Seconds Blood Pressure Mean: 99 Departure Communication (Admissions) Patient is hemodynamically stable with no obvious emergent medical condition at this time, normal vital signs. When she learned we would do blood draw, give IV fluids and possible other medications she declined any further testing. Impression Primary Impression: Hyperglycemia Disposition: AGAINST MEDICAL ADVICE Condition: Against Medical Advice Departure-Patient Inst. Referrals: DORIS SOTO DO (PCP) Primary Care Physician JESUS ALBERTO CLAYTON DO Jan 21, 2022 10:43
== END 2022-01-21 10:40 | disposition left against medical advice (07) ==
LOC: EDUNIT# 10:20 → ER 10:22
DX: E11.65 Type 2 diabetes mellitus with hyperglycemia (principal); F17.210 Nicotine dependence, cigarettes, uncomplicated
CPT/HCPCS: 82947; 99282

== ENCOUNTER 2022-01-24 12:35 | Emergency (ER) | payer MEDICARE, MEDICAID ==
[~2022-01-24] VITALS: Ht 165.1 cm; Wt 99.8 kg
[2022-01-24] MEDS ORDERED: NS IV 1000 ML 1,000 ML IV SCH (13:15)
[2022-01-24 13:36] LABS: EOSINOPHILS # (AUTO) 0.1 10^3/uL (0.0-0.3); EOSINOPHILS % (AUTO) 1 % (0-10); WHITE BLOOD COUNT 5.2 10^3/uL (4.3-11.0)
[2022-01-24 13:38] LABS: BASOPHILS % (AUTO) 1 % (0-10); HEMATOCRIT 40 % (35-52); HEMOGLOBIN 11.6 g/dL (11.5-16.0); LYMPHOCYTES % (AUTO) 38 % (12-44); MEAN CORPUSCULAR HEMOGLOBIN 21 pg (25-34); MEAN CORPUSCULAR HGB CONC 29 g/dL (32-36); MEAN CORPUSCULAR VOLUME 71 fL (80-99); MONOCYTES # (AUTO) 0.3 10^3/uL (0.0-1.0); MONOCYTES % (AUTO) 7 % (0-12); NEUTROPHILS # (AUTO) 2.7 10^3/uL (1.8-7.8); NEUTROPHILS % (AUTO) 53 % (42-75); PLATELET COUNT 180 10^3/uL (130-400)
--- NOTE | 2022-01-24 13:45 | ED General ---
General Chief Complaint: Glucose Problems Stated Complaint: HIGH BLOOD SUGAR Nursing Triage Note: PT AMB TO TRIAGE WITH COMPLAINT OF HIGH BLOOD SUGAR. WAS SENT BY DR ORTIZ OFFICE FOR FURTHER EVALUATION. Source of Information: Patient Exam Limitations: No Limitations History of Present Illness Date Seen by Provider: Jan 24, 2022 Time Seen by Provider: 13:44 Initial Comments This is a 61-year-old female who was referred to the ER per Dr. Soto's office for concerns of high blood sugar in office. She has a history of type 2 diabetes and normally takes metformin, states that she has not taken this medication in over 3 months because she has been taking care of her ill sister. In office today her reading was high. She denies any recent illness, fever, chills, shortness of breath, chest pain, nausea, vomiting, abdominal pain, dysuria. Allergies and Home Medications Allergies Coded Allergies: Penicillins (Verified Allergy, Unknown, 09/04/06) morphine (Verified Allergy, Unknown, 09/04/06) Patient Home Medication List Albuterol Sulfate (Proair Respiclick) 90 Mcg Aer.pow.ba, 2 PUFF INH Q6H PRN for SHORTNESS OF BREATH, (Reported) Entered as Reported by: ALEJANDRA HINOJOSA on 01/01/16856 Albuterol Sulfate (Ventolin Hfa) 1 Puff Puff, 2 PUFF IH Q6H Prescribed by: NAYA NICKERSON on 06/10/181126 Amlodipine Besylate (Amlodipine Besylate) 5 Mg Tablet, 5 MG PO DAILY, (Reported) Entered as Reported by: ALEJANDRA HINOJOSA on 01/01/16856 Azithromycin (Azithromycin) 250 Mg Tablet, PO UD, (Reported) Entered as Reported by: ALEJANDRA HINOJOSA on 01/01/16856 Benzonatate (Tessalon Perles) 100 Mg Capsule, 100 MG PO Q6H PRN for COUGH Prescribed by: NAYA NICKERSON on 06/10/181126 Doxycycline Hyclate (Doxycycline Hyclate) 100 Mg Capsule, 100 MG PO BID, (Reported) Entered as Reported by: ALEJANDRA HINOJOSA on 01/01/16856 Escitalopram Oxalate (Escitalopram Oxalate) 20 Mg Tablet, 20 MG PO DAILY, (Reported) Entered as Reported by: ALEJANDRA HINOJOSA on 11/18/16 0857 Furosemide (Furosemide) 40 Mg Tablet, 40 MG PO DAILY, (Reported) Entered as Reported by: ALEJANDRA HINOJOSA on 01/01/16 0857 Inhaler, Assist Devices (E-Z Spacer) 1 Each Spacer, EACH MC, (DME) Prescribed by: NAYA NICKERSON on 06/10/18 1127 Levothyroxine Sodium (Levothyroxine Sodium) 125 Mcg Tablet, 125 MCG PO DAILY, (Reported) Entered as Reported by: ALEJANDRA HINOJOSA on 01/01/16 0857 Potassium Chloride (Klor-Con M20) 20 Meq Tab.er.prt, 20 MEQ PO DAILY, (Reported) Entered as Reported by: ALEJANDRA HINOJOSA on 01/01/16 0857 Prednisone (Prednisone) 20 Mg Tab, 40 MG PO DAILY Prescribed by: NAYA NICKERSON on 06/10/18 1127 Sulfamethoxazole/Trimethoprim (Bactrim Ds Tablet) 1 Each Tablet, 1 EACH PO BID Prescribed by: Korey Melgoza on 12/30/21 1647 Past Waivijl-Kfdaxd-Gsmdws Hx Patient Social History Tobacco Use?: Yes Tobacco type used: Cigarettes Smoking Status: Current Everyday Smoker Use of E-Cig and/or Vaping dev: No Substance use?: No Alcohol Use?: No Pt feels they are or have been: No Immunizations Up To Date Tetanus Booster (TDap): Unknown First/Initial COVID19 Vaccinat: yes Second COVID19 Vaccination Fady: yes Third COVID19 Vaccination Date: yes Seasonal Allergies Seasonal Allergies: No Past Medical History Surgery/Hospitalization HX: COPD, DIABETIC TYPE II, BLADDER SURGERY, 11 SURGERIES ON RT ARM FROM TRAUMA Surgeries: Yes (R ARM, LIGAMENT TRANSFER AND NASAL RECONSTR) Breast, Nose, Orthopedic, Tonsillectomy, Tubal Ligation Respiratory: No Cardiac: Yes Hypertension Neurological: Yes Headaches /Migraines Reproductive Disorders: No Gastrointestinal: Yes Gastroesophageal Reflux Musculoskeletal: Yes (RIGHT ARM COMPOUND FX) Fractures Endocrine: Yes Hypothyroidsim Cancer: No Psychosocial: Yes Anxiety, Depression Integumentary: No Blood Disorders: No Family Medical History Alcoholism G8 BROTHER Cardiovascular disease 19 MOTHER Diabetes mellitus G8 SISTER FH: cancer 19 FATHER Hypertension G8 BROTHER No Pertinent Family Hx Physical Exam Vital Signs Vital Signs - First Documented 01/24/22 12:41 Temp 36.2 Pulse 94 Resp 16 B/P (MAP) 162/82 (108) Pulse Ox 96 O2 Delivery Room Air Capillary Refill : Less Than 3 Seconds Height, Weight, BMI Height: 5'5.00" Weight: 240lbs. 8.0oz. 108.996607tm; 36.00 BMI Method:Stated Progress/Results/Core Measures Suspected Sepsis SIRS Temperature: Pulse: 94 Respiratory Rate: 16 Laboratory Tests 01/24/22 13:29: White Blood Count 5.2 Blood Pressure 162 /82 Mean: 108 Laboratory Tests 01/24/22 13:29: Creatinine 0.82, Platelet Count 180, Total Bilirubin 0.5 Results/Orders Lab Results Laboratory Tests Test 01/24/22 13:10 01/24/22 13:29 01/24/22 13:45 Range/Units Glucometer 340 H 70-110 MG/DL White Blood Count 5.2 4.3-11.0 10^3/uL Red Blood Count 5.55 H 3.80-5.11 10^6/uL Hemoglobin 11.6 11.5-16.0 g/dL Hematocrit 40 35-52 % Mean Corpuscular Volume 71 L 80-99 fL Mean Corpuscular Hemoglobin 21 L 25-34 pg Mean Corpuscular Hemoglobin Concent 29 L 32-36 g/dL Red Cell Distribution Width 17.7 H 10.0-14.5 % Platelet Count 180 130-400 10^3/uL Mean Platelet Volume 9.0-12.2 fL Immature Granulocyte % (Auto) 1 % Neutrophils (%) (Auto) 53 42-75 % Lymphocytes (%) (Auto) 38 12-44 % Monocytes (%) (Auto) 7 0-12 % Eosinophils (%) (Auto) 1 0-10 % Basophils (%) (Auto) 1 0-10 % Neutrophils # (Auto) 2.7 1.8-7.8 10^3/uL Lymphocytes # (Auto) 2.0 1.0-4.0 10^3/uL Monocytes # (Auto) 0.3 0.0-1.0 10^3/uL Eosinophils # (Auto) 0.1 0.0-0.3 10^3/uL Basophils # (Auto) 0.0 0.0-0.1 10^3/uL Immature Granulocyte # (Auto) 0.0 0.0-0.1 10^3/uL Percent Immature Platelet Fraction 9.3 H 0.0-7.6 % Sodium Level 128 L 135-145 MMOL/L Potassium Level 4.1 3.6-5.0 MMOL/L Chloride Level 98 98-107 MMOL/L Carbon Dioxide Level 20 L 21-32 MMOL/L Anion Gap 10 5-14 MMOL/L Blood Urea Nitrogen 10 7-18 MG/DL Creatinine 0.82 0.60-1.30 MG/DL Estimat Glomerular Filtration Rate 82 BUN/Creatinine Ratio 12 Glucose Level 328 H 70-105 MG/DL Calcium Level 8.6 8.5-10.1 MG/DL Corrected Calcium 9.2 8.5-10.1 MG/DL Total Bilirubin 0.5 0.1-1.0 MG/DL Aspartate Amino Transf (AST/SGOT) 90 H 5-34 U/L Alanine Aminotransferase (ALT/SGPT) 53 0-55 U/L Alkaline Phosphatase 84 40-136 U/L Total Protein 8.5 H 6.4-8.2 GM/DL Albumin 3.3 3.2-4.5 GM/DL Beta-Hydroxybutyrate (Chem panel) 1.15 H 0.00-0.27 MMOL/L Urine Color YELLOW Urine Clarity CLEAR Urine pH 6.0 5-9 Urine Specific [place] 1.025 H 1.016-1.022 Urine Protein TRACE H NEGATIVE Urine Glucose (UA) 3+ H NEGATIVE Urine Ketones 1+ H NEGATIVE Urine Nitrite NEGATIVE NEGATIVE Urine Bilirubin NEGATIVE NEGATIVE Urine Urobilinogen 0.2 < = 1.0 MG/DL Urine Leukocyte Esterase NEGATIVE NEGATIVE Urine RBC (Auto) NEGATIVE NEGATIVE Urine RBC NONE /HPF Urine WBC NONE /HPF Urine Squamous Epithelial Cells 2-5 /HPF Urine Crystals NONE /LPF Urine Bacteria TRACE /HPF Urine Casts NONE /LPF Urine Mucus NEGATIVE /LPF Urine Culture Indicated NO My Orders Orders - KYLE SANTOS APRN Ed Iv/Invasive Line Start (01/24/22 13:02) Ns Iv 1000 Ml (Sodium Chloride 0.9%) (01/24/22 13:15) Cbc With Automated Diff (01/24/22 13:02) Comprehensive Metabolic Panel (01/24/22 13:02) Accucheck Stat ONCE (01/24/22 13:02) Ua Culture If Indicated (01/24/22 13:02) Beta Hydroxybutyrate (01/24/22 13:02) Vital Signs/I&O 01/24/22 12:41 Temp 36.2 Pulse 94 Resp 16 B/P (MAP) 162/82 (108) Pulse Ox 96 O2 Delivery Room Air Capillary Refill : Less Than 3 Seconds Blood Pressure Mean: 108 Point of Care Testing Finger Stick Blood Glucose: 340 Blood Glucose Action Taken: provider notified Departure Impression Primary Impression: Hyperglycemia Additional Impression: Type 2 diabetes mellitus Disposition: HOME, SELF-CARE Condition: Improved Departure-Patient Inst. Decision time for Depature: 14:33 Referrals: DORIS SOTO DO (PCP/Family) Primary Care Physician Patient Instructions: Diabetic Meal Planning , Blood Glucose Test, Type 2 Diabetes (DC), Carbohydrate Counting Diet Add. Discharge Instructions: Plan: 1. Start your metformin at 500 mg twice a day and then follow-up with Dr. Soto as scheduled on you will need to gradually increase this that does not cause GI effects. 2. Try to limit the amount of carbohydrates you eat these include breads, beans, sweets. Recommend eating more vegetables, lean meats, and sugared drinks. 3. Return to the ER for any new, concerning, worsening symptoms. All discharge instructions reviewed with patient and/or family. Voiced understalysia fields. Scripts Metformin HCl (Metformin HCl) 500 Mg Tablet 500 MG PO BID for 14 Days, #28 TAB 0 Refills Prov: KYLE SANTOS CARE TRANSITIONS MANAGER 01/24/22 KYLE SANTOS CARE TRANSITIONS MANAGER Jan 24, 2022 13:45
[2022-01-24 13:54] LABS: ALBUMIN 3.3 GM/DL (3.2-4.5); BILIRUBIN,TOTAL 0.5 MG/DL (0.1-1.0); CALCIUM 8.6 MG/DL (8.5-10.1); CREATININE SERUM 0.82 MG/DL (0.60-1.30); POTASSIUM 4.1 MMOL/L (3.6-5.0); TOTAL PROTEIN 8.5 GM/DL (6.4-8.2)
[2022-01-24 13:56] LABS: BILIRUBIN,URINE NEGATIVE (NEGATIVE); CLARITY,URINE CLEAR; COLOR,URINE YELLOW; GLUCOSE, URINE (UA) 3+ (NEGATIVE); KETONES,URINE 1+ (NEGATIVE); LEUKOCYTE ESTERASE ,URINE NEGATIVE (NEGATIVE); NITRITE,URINE NEGATIVE (NEGATIVE); PROTEIN,URINE TRACE (NEGATIVE)
[2022-01-24 14:11] LABS: BACTERIA,URINE TRACE /HPF
[2022-01-24] MEDS ORDERED: METF-397 PO (14:36)
[2022-01-24] MEDS ORDERED: inSUlin ASPART (NovoLOG) 1 UNIT/0.01 ML (CHARGE PER UNIT) SC ONE (14:45)
[2022-01-24 14:47] VITALS: BP 135/65
== END 2022-01-24 14:49 | disposition home or self-care (01) ==
LOC: EDUNIT# 12:35 → ER 12:37
DX: E11.65 Type 2 diabetes mellitus with hyperglycemia (principal); F17.210 Nicotine dependence, cigarettes, uncomplicated; Z79.84 Long term (current) use of oral hypoglycemic drugs
CPT/HCPCS: 36415; 80053; 81000; 82010; 82947; 85025

== ENCOUNTER 2022-03-30 23:58 | Emergency (ER) | payer MEDICARE, MEDICAID ==
[~2022-03-30] VITALS: Ht 165 cm; Wt 95.2 kg
[~2022-03-30 23:58] MED LIST changes: +METF-397 PO
--- NOTE | 2022-03-31 00:14 | ED General ---
General Stated Complaint: DIZZY,NECK PAIN,CONGESTION History of Present Illness Date Seen by Provider: Mar 31, 2022 Time Seen by Provider: 00:08 Initial Comments 62-year-old female presents with congestion, pain behind her left ear and down to her shoulder. Some ear pain. Some dizziness. Is generalized malaise. She reports the dizziness gets worse when she stands up. She reports that things been going on for about 4 days. No hearing loss. No reports of fever. Allergies and Home Medications Allergies Coded Allergies: Penicillins (Verified Allergy, Unknown, 09/04/06) morphine (Verified Allergy, Unknown, 09/04/06) Patient Home Medication List Home Medication List Reviewed: Yes Albuterol Sulfate (Proair Respiclick) 90 Mcg Aer.pow.ba, 2 PUFF INH Q6H PRN for SHORTNESS OF BREATH, (Reported) Entered as Reported by: ALEJANDRA HINOJOSA on 01/01/16856 Albuterol Sulfate (Ventolin Hfa) 1 Puff Puff, 2 PUFF IH Q6H Prescribed by: NAYA NICKERSON on 06/10/181126 Amlodipine Besylate (Amlodipine Besylate) 5 Mg Tablet, 5 MG PO DAILY, (Reported) Entered as Reported by: ALEJANDRA HINOJOSA on 01/01/16856 Azithromycin (Azithromycin) 250 Mg Tablet, PO UD, (Reported) Entered as Reported by: ALEJANDRA HINOJOSA on 01/01/16856 Benzonatate (Tessalon Perles) 100 Mg Capsule, 100 MG PO Q6H PRN for COUGH Prescribed by: NAYA NICKERSON on 06/10/181126 Doxycycline Hyclate (Doxycycline Hyclate) 100 Mg Capsule, 100 MG PO BID, (Reported) Entered as Reported by: ALEJANDRA HINOJOSA on 01/01/16856 Escitalopram Oxalate (Escitalopram Oxalate) 20 Mg Tablet, 20 MG PO DAILY, (Reported) Entered as Reported by: ALEJANDRA HINOJOSA on 01/01/16856 Furosemide (Furosemide) 40 Mg Tablet, 40 MG PO DAILY, (Reported) Entered as Reported by: ALEJANDRA HINOJOSA on 01/01/16856 Inhaler, Assist Devices (E-Z Spacer) 1 Each Spacer, EACH , (DME) Prescribed by: NAYA NICKERSON on 4/28/19 1127 Levothyroxine Sodium (Levothyroxine Sodium) 125 Mcg Tablet, 125 MCG PO DAILY, (Reported) Entered as Reported by: ALEJANDRA HINOJOSA on 01/01/16 0857 Metformin HCl (Metformin HCl) 500 Mg Tablet, 500 MG PO BID Prescribed by: KYLE SANTOS on 01/24/22 1436 Potassium Chloride (Klor-Con M20) 20 Meq Tab.er.prt, 20 MEQ PO DAILY, (Reported) Entered as Reported by: ALEJANDRA HINOJOSA on 01/01/16 0857 Prednisone (Prednisone) 20 Mg Tab, 40 MG PO DAILY Prescribed by: NAYA NICKERSON on 06/10/18 1127 Sulfamethoxazole/Trimethoprim (Bactrim Ds Tablet) 1 Each Tablet, 1 EACH PO BID Prescribed by: Korey Melgoza on 12/30/21 1647 Review of Systems Review of Systems Constitutional: dizziness; No fever; malaise EENTM: see HPI Respiratory: No short of breath Cardiovascular: No chest pain, No palpitations Gastrointestinal: No abdominal pain; nausea; No vomiting Musculoskeletal: see HPI Skin: no symptoms reported Psychiatric/Neurological: No Symptoms Reported Hematologic/Lymphatic: No Symptoms Reported Past Dufoarm-Afvhsf-Rltxsl Hx Immunizations Up To Date Tetanus Booster (TDap): Unknown First/Initial COVID19 Vaccinat: yes Second COVID19 Vaccination Fady: yes Third COVID19 Vaccination Date: yes Seasonal Allergies Seasonal Allergies: No Past Medical History Surgery/Hospitalization HX: COPD, DIABETIC TYPE II, BLADDER SURGERY, 11 SURGERIES ON RT ARM FROM TRAUMA Surgeries: Yes (R ARM, LIGAMENT TRANSFER AND NASAL RECONSTR) Breast, Nose, Orthopedic, Tonsillectomy, Tubal Ligation Respiratory: No Cardiac: Yes Hypertension Neurological: Yes Headaches /Migraines Reproductive Disorders: No Gastrointestinal: Yes Gastroesophageal Reflux Musculoskeletal: Yes (RIGHT ARM COMPOUND FX) Fractures Endocrine: Yes Hypothyroidsim Cancer: No Psychosocial: Yes Anxiety, Depression Integumentary: No Blood Disorders: No Family Medical History Alcoholism G8 BROTHER Cardiovascular disease 19 MOTHER Diabetes mellitus G8 SISTER FH: cancer 19 FATHER Hypertension G8 BROTHER No Pertinent Family Hx Physical Exam Vital Signs Vital Signs - First Documented 03/31/22 00:10 Pulse 120 Resp 18 B/P (MAP) 170/110 (130) Pulse Ox 96 O2 Delivery Room Air Capillary Refill : Height, Weight, BMI Height: 5'5.00" Weight: 240lbs. 8.0oz. 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 Skin: Normal Color, Warm/Dry Progress/Results/Core Measures Suspected Sepsis SIRS Temperature: Pulse: Respiratory Rate: Laboratory Tests 03/31/22 00:35: White Blood Count 14.3H Blood Pressure / Mean: Laboratory Tests 03/31/22 00:35: Creatinine 0.77, Platelet Count 355, Total Bilirubin 0.5 Results/Orders Lab Results Laboratory Tests Test 03/31/22 00:17 03/31/22 00:35 03/31/22 00:57 Range/Units Urine Color DARK YELLOW Urine Clarity CLEAR Urine pH 6.0 5-9 Urine Specific [place] >=1.030 1.016-1.022 Urine Protein 2+ H NEGATIVE Urine Glucose (UA) NEGATIVE NEGATIVE Urine Ketones TRACE H NEGATIVE Urine Nitrite NEGATIVE NEGATIVE Urine Bilirubin 1+ H NEGATIVE Urine Urobilinogen 4.0 < = 1.0 MG/DL Urine Leukocyte Esterase NEGATIVE NEGATIVE Urine RBC (Auto) NEGATIVE NEGATIVE Urine RBC NONE /HPF Urine WBC 0-2 /HPF Urine Squamous Epithelial Cells 2-5 /HPF Urine Crystals PRESENT H /LPF Urine Calcium Oxalate Crystals FEW H /LPF Urine Bacteria TRACE /HPF Urine Casts PRESENT /LPF Urine Hyaline Casts 0-2 H /LPF Urine Mucus LARGE H /LPF Urine Culture Indicated NO White Blood Count 14.3 H 4.3-11.0 10^3/uL Red Blood Count 5.29 H 3.80-5.11 10^6/uL Hemoglobin 10.1 L 11.5-16.0 g/dL Hematocrit 36 35-52 % Mean Corpuscular Volume 68 L 80-99 fL Mean Corpuscular Hemoglobin 19 L 25-34 pg Mean Corpuscular Hemoglobin Concent 28 L 32-36 g/dL Red Cell Distribution Width 20.4 H 10.0-14.5 % Platelet Count 355 130-400 10^3/uL Mean Platelet Volume 9.0-12.2 fL Immature Granulocyte % (Auto) 0 % Neutrophils (%) (Auto) 77 H 42-75 % Lymphocytes (%) (Auto) 15 12-44 % Monocytes (%) (Auto) 6 0-12 % Eosinophils (%) (Auto) 1 0-10 % Basophils (%) (Auto) 1 0-10 % Neutrophils # (Auto) 11.0 H 1.8-7.8 10^3/uL Lymphocytes # (Auto) 2.1 1.0-4.0 10^3/uL Monocytes # (Auto) 0.9 0.0-1.0 10^3/uL Eosinophils # (Auto) 0.1 0.0-0.3 10^3/uL Basophils # (Auto) 0.1 0.0-0.1 10^3/uL Immature Granulocyte # (Auto) 0.1 0.0-0.1 10^3/uL Neutrophils % (Manual) 76 % Lymphocytes % (Manual) 19 % Monocytes % (Manual) 4 % Eosinophils % (Manual) 1 % Percent Immature Platelet Fraction 6.8 0.0-7.6 % Hypochromasia SLIGHT Microcytosis MODERATE Sodium Level 141 135-145 MMOL/L Potassium Level 3.6 3.6-5.0 MMOL/L Chloride Level 109 H 98-107 MMOL/L Carbon Dioxide Level 16 L 21-32 MMOL/L Anion Gap 16 H 5-14 MMOL/L Blood Urea Nitrogen 14 7-18 MG/DL Creatinine 0.77 0.60-1.30 MG/DL Estimat Glomerular Filtration Rate 88 BUN/Creatinine Ratio 18 Glucose Level 116 H 70-105 MG/DL Calcium Level 9.4 8.5-10.1 MG/DL Corrected Calcium 9.6 8.5-10.1 MG/DL Magnesium Level 1.5 L 1.6-2.4 MG/DL Total Bilirubin 0.5 0.1-1.0 MG/DL Aspartate Amino Transf (AST/SGOT) 82 H 5-34 U/L Alanine Aminotransferase (ALT/SGPT) 80 H 0-55 U/L Alkaline Phosphatase 87 40-136 U/L C-Reactive Protein High Sensitivity 0.17 0.00-0.50 MG/DL Total Protein 8.9 H 6.4-8.2 GM/DL Albumin 3.8 3.2-4.5 GM/DL Influenza Type A (RT-PCR) Not Detected Not Detecte Influenza Type B (RT-PCR) Not Detected Not Detecte SARS-CoV-2 RNA (RT-PCR) Not Detected Not Detecte My Orders Orders - YOKASTA NEWMAN DO Cbc With Automated Diff (03/31/22 00:15) Comprehensive Metabolic Panel (03/31/22 00:15) Hs C Reactive Protein (03/31/22 00:15) Magnesium (03/31/22 00:15) Ua Culture If Indicated (03/31/22 00:15) Influenza A And B By Pcr (03/31/22:15) Covid 19 Inhouse Test (03/31/22 00:15) Ondansetron Injection (Zofran Injectio (03/31/22 00:15) Ns Iv 1000 Ml (Sodium Chloride 0.9%) (03/31/22 00:15) Ct Head Wo-R/O Stroke (03/31/22 00:15) Manual Differential (03/31/22 00:35) Ketorolac Injection (Toradol Injection) (03/31/22 01:23) Medications Given in ED Current Medications Medications Dose Ordered Sig/Brigid Route Start Time Stop Time Status Last Admin Dose Admin Ondansetron HCl 4 mg ONCE ONCE IVP 03/31/22 00:15 03/31/22 00:17 DC 03/31/22 00:37 4 MG Vital Signs/I&O 03/31/22 00:10 Pulse 120 Resp 18 B/P (MAP) 170/110 (130) Pulse Ox 96 O2 Delivery Room Air Capillary Refill : Progress Note : Progress Note Patient's labs were reviewed show mild abnormalities. Patient is currently on Keflex. Patient's symptoms improved with treatment. Patient had head CT that was reviewed and was negative. Patient should finish her Keflex and have a repeat check. She may have some mild eustachian tube disorder along with likely mild musculoskeletal pain. Patient is stable and discharged Departure Impression Primary Impression: Dizziness Disposition: HOME, SELF-CARE Condition: Stable Departure-Patient Inst. Referrals: DORIS SOTO DO (PCP/Family) Primary Care Physician Patient Instructions: Vertigo (a Type of Dizziness) (DC) Add. Discharge Instructions: Please follow-up with your primary care provider if your symptoms continue. Please complete your current antibiotic. YOKASTA NEWMAN DO Mar 31, 2022 00:14
[2022-03-31] MEDS: NS IV 1000 ML 1,000 ML IV STA (00:36)
[2022-03-31] MEDS: ONDANSETRON 4 MG/2 ML (SDV) Z0FRAN IVP ONE (00:37)
[2022-03-31 00:56] LABS: MEAN CORPUSCULAR HEMOGLOBIN 19 pg (25-34)
[2022-03-31 00:58] LABS: BASOPHILS # (AUTO) 0.1 10^3/uL (0.0-0.1); BASOPHILS % (AUTO) 1 % (0-10); EOSINOPHILS # (AUTO) 0.1 10^3/uL (0.0-0.3); EOSINOPHILS % (AUTO) 1 % (0-10); HEMATOCRIT 36 % (35-52); HEMOGLOBIN 10.1 g/dL (11.5-16.0); LYMPHOCYTES # (AUTO) 2.1 10^3/uL (1.0-4.0); LYMPHOCYTES % (AUTO) 15 % (12-44); MEAN CORPUSCULAR HGB CONC 28 g/dL (32-36); MEAN CORPUSCULAR VOLUME 68 fL (80-99); MONOCYTES # (AUTO) 0.9 10^3/uL (0.0-1.0); MONOCYTES % (AUTO) 6 % (0-12); NEUTROPHILS % (AUTO) 77 % (42-75); PLATELET COUNT 355 10^3/uL (130-400); WHITE BLOOD COUNT 14.3 10^3/uL (4.3-11.0)
[2022-03-31 01:10] LABS: BACTERIA,URINE TRACE /HPF; BILIRUBIN,URINE 1+ (NEGATIVE); CALCIUM OXALATE CRYSTALS,UR FEW /LPF; CLARITY,URINE CLEAR; COLOR,URINE DARK YELLOW; GLUCOSE, URINE (UA) NEGATIVE (NEGATIVE); HYALINE CASTS, URINE 0-2 /LPF; KETONES,URINE TRACE (NEGATIVE); LEUKOCYTE ESTERASE ,URINE NEGATIVE (NEGATIVE); NITRITE,URINE NEGATIVE (NEGATIVE); PROTEIN,URINE 2+ (NEGATIVE); WBC,URINE 0-2 /HPF
[2022-03-31 01:10] LABS: ALBUMIN 3.8 GM/DL (3.2-4.5); POTASSIUM 3.6 MMOL/L (3.6-5.0)
[2022-03-31 01:11] LABS: CALCIUM 9.4 MG/DL (8.5-10.1)
[2022-03-31 01:12] LABS: TOTAL PROTEIN 8.9 GM/DL (6.4-8.2)
[2022-03-31 01:14] LABS: BILIRUBIN,TOTAL 0.5 MG/DL (0.1-1.0)
[2022-03-31 01:16] LABS: CREATININE SERUM 0.77 MG/DL (0.60-1.30)
[2022-03-31 01:19] LABS: MAGNESIUM 1.5 MG/DL (1.6-2.4)
[2022-03-31 01:25] LABS: EOSINOPHILS % (MANUAL) 1 %; HYPOCHROMASIA SLIGHT; LYMPHOCYTES % (MANUAL) 19 %; MICROCYTOSIS MODERATE; MONOCYTES % (MANUAL) 4 %; NEUTROPHILS % (MANUAL) 76 %
[2022-03-31] MEDS: KETOROLAC 30 MG/ML VIAL IVP STA (01:43)
[2022-03-31 02:00] VITALS: BP 159/97
--- NOTE | 2022-03-31 07:21 | Diagnostic Imaging Report ---
PROCEDURE: CT head wo r/o stroke. TECHNIQUE: Multiple contiguous axial images were obtained through the brain without the use of intravenous contrast. Auto Exposure Controls were utilized during the CT exam to meet ALARA standards for radiation dose reduction. INDICATION: Neurologic deficit COMPARISON: 02/21/2014 Ventricles and sulci are within normal limits for size however there has been significant increase in low-density throughout the cerebral white matter, greater on the right. Probable nonacute lacunar infarcts involving the deep white matter of right frontal lobe adjacent to the frontal horn with probable nonacute lacunar infarcts in the left basal ganglia and within the right thalamus. No intracranial hemorrhage is identified. There is moderate mural thickening and fluid present within maxillary sinuses. Atherosclerotic calcification seen within distal internal carotid arteries. IMPRESSION: Probable progressive nonacute microvascular ischemia although MRI would be useful for detection of acute infarct. There is developing maxillary sinus inflammation. Dictated by: Dictated on workstation # [id number]
== END 2022-03-31 02:04 | disposition home or self-care (01) ==
LOC: EDUNIT# 23:58 → ER 03-31
DX: R42 Dizziness and giddiness (principal); Z88.0 Allergy status to penicillin; Z20.822 Contact with and (suspected) exposure to COVID-19
CPT/HCPCS: 36415; 70450; 80053; 81000; 83735; 85007; 85027; 86141; 87636

== ENCOUNTER 2022-10-17 14:28 | Emergency (ER) | payer MEDICARE, MEDICAID ==
[~2022-10-17] VITALS: Ht 170 cm; Wt 91.0 kg
[2022-10-17] MEDS ORDERED: Tetanus/Diphtheria/Pertussis (Acell) ADULT Vaccine 0.5 ML IM ONE (15:00)
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
[2022-10-17] MEDS ORDERED: LIDOCAINE 1% INJ 10 ML VIAL INJ ONE (15:30)
--- NOTE | 2022-10-17 15:36 | Diagnostic Imaging Report ---
Indication: Bit by dog with laceration to the right wrist and pain. Time of Exam: 3:06 PM Correlation is made with prior radiograph from 10/05/2016. A soft tissue injury to the distal forearm wrist area is noted. No foreign body seen. 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 No fractures are seen. IMPRESSION: There appears to be a soft tissue injury at the level of the distal forearm and wrist. Chronic deformity of the distal radius and ulna appears similar to the exam from 2017. Dictated by: Dictated on workstation # [id number]
[2022-10-17] MEDS ORDERED: DOXY-444 PO (16:03)
[2022-10-17 16:13] VITALS: BP 179/75
== END 2022-10-17 16:15 | disposition home or self-care (01) ==
LOC: EDUNIT# 14:28 → ER 14:31
DX: S61.511A Laceration without foreign body of right wrist, initial encounter (principal); F17.210 Nicotine dependence, cigarettes, uncomplicated; Z23 Encounter for immunization; Z88.0 Allergy status to penicillin; W54.0XXA Bitten by dog, initial encounter; Y92.007 Garden or yard of unspecified non-institutional (private) residence as the place of occurrence of the external cause
CPT/HCPCS: 73090; 90715